=== PATIENT | male | born 1985 | race Caucasian/White ===

== ENCOUNTER 2017-06-26 16:24 | Emergency (ER) | payer BC ==
[~2017-06-26] VITALS: Ht 177.8 cm; Wt 104.3 kg
[2017-06-26 16:41] VITALS: BP_SYST 136
[2017-06-26] MEDS ORDERED: IBUPROFEN 800 MG TABLET PO ONE (17:45)
[2017-06-26] MEDS ORDERED: CLINDAMYCIN HCL 150 MG CAPSULE PO ONE (17:45)
[2017-06-26 18:04] VITALS: BP_SYST 136
== END 2017-06-26 18:04 | disposition home or self-care (01) ==
LOC: SED 16:24
DX: L03.211 Cellulitis of face (principal); R03.0 Elevated blood-pressure reading, without diagnosis of hypertension; J45.909 Unspecified asthma, uncomplicated; F17.210 Nicotine dependence, cigarettes, uncomplicated; Z88.1 Allergy status to other antibiotic agents
CPT/HCPCS: 99283

== ENCOUNTER 2021-06-30 21:35 | Emergency (ER) | payer BC ==
[~2021-06-30] VITALS: Ht 177.8 cm; Wt 108.9 kg
[2021-06-30 21:47] VITALS: BP_SYST 134
--- NOTE | 2021-06-30 21:53 | NUR ---
Patient triaged and placed in waiting room. VSS and patient appears in no acute distress at this time. Accompanied by SELF, awaiting available bed, and MD notified of need for MSE.
--- NOTE | 2021-06-30 22:20 | NUR ---
Patient to ER bed 5 to gown for evaluation. Side rails up. Report given to LORETTA MEJIA.
--- NOTE | 2021-06-30 22:25 | NUR ---
ER at bedside examining patient.
--- NOTE | 2021-06-30 22:39 | NUR ---
PT ARRIVED TO ER FOR SOMETHING IN HIS RIGHT EYE. PT WAS WOKRING WITH METAL AND THINKS ITS A METAL SHaving. HAPPEND AT 1300. 0/10 PAIN, JUST DISCOMFORT. PT WASHED OUT EYE WITH SALINE INITIALLY. PT STATES RIGHT EYE IS A BIT MN[place] BLURRY THAN USUAL. A&OX4
--- NOTE | 2021-06-30 22:57 | NUR ---
DR SAM AT BEDSIDE PERFORMING EYE EXAM
[2021-06-30] MEDS ORDERED: HYDR-3917 PO (23:15)
[2021-06-30] MEDS ORDERED: TOBR3.5O2 RIGHT EYE (23:15)
[2021-06-30 23:29] VITALS: BP_SYST 134
--- NOTE | 2021-06-30 23:32 | NUR ---
Patient given written and verbal discharge instructions and verbalizes understanding. ER MD discussed with patient the results and treatment provided. Patient in stable condition. ID arm band removed. Rx of NORCO, TOBRADEX given. Patient educated on pain management and to follow up with PMD. Pain Scale 2/10. Opportunity for questions provided and answered. Medication side effect fact sheet provided.
== END 2021-06-30 23:32 | disposition home or self-care (01) ==
LOC: SED 21:35
DX: T15.01XA Foreign body in cornea, right eye, initial encounter (principal); J45.909 Unspecified asthma, uncomplicated; Z88.1 Allergy status to other antibiotic agents; Z79.899 Other long term (current) drug therapy; X58.XXXA Exposure to other specified factors, initial encounter; Y93.89 Activity, other specified; Y92.89 Other specified places as the place of occurrence of the external cause; Y99.8 Other external cause status
CPT/HCPCS: 99284